=== PATIENT | female | born 1930 | race Caucasian/White ===

== ENCOUNTER 2016-12-14 03:22 | Inpatient (IN) ==
--- NOTE | 2016-12-14 04:25 | PROVIDER DOCUMENTATION ---
HPI-Cardiac General - General Chief Complaint: Shortness of Breath Stated Complaint: DYSPNEA, DNR, IRREGULAR BREATHING PATTERN Time Seen by Provider: 12/14/16 04:18 Source: family Allergies/Adverse Reactions: Patient Allergies Allergy/AdvReac Type Severity Reaction Status Date / Time No Known Allergies Allergy Verified 12/14/16 03:41 Home Medications: Home Medication List Medication Instructions Recorded Confirmed Last Taken Type Amlodipine [Norvasc] 5 mg PO DAILY 02/09/16 12/14/16 12/13/16 History Bisoprolol [Zebeta] 5 mg PO DAILY 02/09/16 12/14/16 12/13/16 History Digoxin 0.125 mg PO DAILY 02/09/16 12/14/16 12/13/16 History Diphenoxylate/Atropine [Lomotil] 2.5 mg PO DAILY 02/09/16 12/14/16 12/13/16 History Furosemide [Lasix] 40 mg PO DAILY 02/09/16 12/14/16 12/13/16 History Isosorbide Mononitrate E.r. [Imdur] 30 mg PO DAILY 02/09/16 12/14/16 12/13/16 History Quetiapine [Seroquel] 50 mg PO QHS 02/09/16 12/14/16 12/13/16 History Sertraline [Zoloft] 50 mg PO DAILY 02/09/16 12/14/16 12/13/16 History Aspirin [Aspirin EC] 81 mg PO DAILY #30 tablet. 02/12/16 12/14/16 12/13/16 Rx - History of Present Illness-Cardiac Nature of Presenting Problem: hx of chf afib with dementia having yari rudd breathing rapidly Quality of Pain: reports: none Severity in ED: moderate Onset/Duration: this evening Timing: still present Context/Activities at Onset: reports: none Modifying Factors: improves with: nothing, other medication Palpitation Quality: irregular History of arrythmia: reports: A-Fib Recent use of:: denies: no stimulants, caffeine, decongestant, cocaine, amphetamine Nitro Today/Relief: denies: no nitro taken today Aspirin Treatment Today: denies: no aspirin today Prior Chest Pain/Cardiac Workup: reports: no prior chest pain Associated Symptoms: reports: shortness of breath, weakness Similar Symptoms Previously?: Yes Recently Seen Here or By Another Healthcare Provider: Yes Review of Systems - Adult - REVIEW OF SYSTEMS - ADULT Constitutional: denies: chills, fever Eyes: reports: no symptoms reported Ears, Nose, Mouth & Throat: reports: no symptoms reported Cardiovascular: reports: irregular heart rate. denies: edema Respiratory: reports: dyspnea on exertion, shortness of breath Gastrointestinal: reports: no symptoms reported Genitourinary: reports: no symptoms reported Musculoskeletal: reports: no symptoms reported Integumentary: reports: no symptoms reported Neurological: reports: no symptoms reported Psychiatric: reports: no symptoms reported Endocrine: reports: no symptoms reported Hematologic/Lymphatic: reports: no symptoms reported Allergic/Immunologic: reports: no symptoms reported Past History - Adult - PAST MEDICAL HISTORY-ADULT Review of Records: reports: Nursing Assessment Review, Medications Reviewed, Social history reviewed & non-contributory. Major Childhood Illnesses: reports: denies history Cardiovascular: reports: CHF, HTN Respiratory: reports: asthma Gastrointestinal: reports: denies history Obstetrical/Gynecological: reports: denies history Genitourinary: reports: kidney disease Musculoskeletal: reports: denies history Neurological: reports: dementia Endocrine/Immune: reports: thyroid disorder Other Conditions: reports: denies history - PRIOR SURGERIES/PROCEDURES Surgical/Procedure History: reports: reviewed, not pertinent - PRIOR HOSPITALIZATIONS Prior Hospitalizations: reports: none - IMMUNIZATION STATUS Childhood Immunizations: See Nurse Assessment Flu Vaccine: See Nurse Assessment - FAMILY HISTORY Family History: reviewed, not pertinent Physical Exam-General - PHYSICAL EXAM-ADULT Initial Vital Signs Reviewed: Yes - CONSTITUTIONAL General Appearance: moderate distress - EYES Eyes: PERRL/EOMI, pink conjunctivae - HEAD, EARS, NOSE, MOUTH & THROAT HENMT: normocephalic/atraumatic - NECK Neck: supple - RESPIRATORY Respiratory: respiratory distress, rhonchi - CARDIOVASCULAR Cardiovascular: normal peripheral pulses, regular rate, rhythm - GASTROINTESTINAL (ABDOMEN) Abdominal Exam: soft - LYMPHATIC Lymphatic: no adenopathy - MUSCULOSKELETAL Back Exam: normal inspection Extremity: non-tender - SKIN Integumentary: normal color, warm/dry - NEUROLOGIC Neurologic: grossly normal Progress - PLAN OF CARE/RESULTS Progress/Plan/Lab Results: Vital Signs - 8 hr 12/14/16 03:34 12/14/16 03:48 Temperature 99.4 F Pulse Rate 158 H 145 H Respiratory Rate 38 H 46 H Blood Pressure 128/100 128/100 O2 Sat by Pulse Oximetry 95 98 Orders Category Date Time Status Admit - [facility] Routine AdmDCTranf 12/14/16 04:55 Ordered Activity - Strict Bedrest ORDERED Care 12/14/16 04:55 Active Vital Signs Order Q 8-HR .ASSESS Care 12/14/16 04:55 Active Z-Document. for Tele Applied ORDERED Care 12/14/16 04:57 Active Clear Liquid Diet Diet 12/14/16 04:57 Active CHEST-PORTABLE [RAD] Stat Exams 12/14/16 04:51 Ordered CBC WITH ELECTRONIC DIFF [HEME] Stat Lab 12/14/16 04:51 Ordered COMPREHENSIVE METABOLIC PANEL [CHEM] Stat Lab 12/14/16 04:51 Ordered 0.9% Sodium Chloride Inj [Ns] 1,000 ml Med 12/14/16 04:55 Active IV 50 mls/hr Metoprolol [Lopressor] Med 12/14/16 04:58 Discontinued 5 mg IV NOW ONE Oxygen Device Routine Oth 12/14/16 04:56 Active Telemetry [OM.EQ] Routine Oth 12/14/16 04:55 Active EKG [EKG] Routine Ther 12/14/16 04:51 Ordered Transfer/Admit Order [TRANSFER] Routine Transfer 12/14/16 04:55 Ordered - EKG 1 Time of EKG reading by physician:: 05:29 EKG Read and Signed by:: Tommie Flanagan EKG Interpretation (*Must complete 3 of following elements*): Abnormal Rate: 148 Rhythm: afib QRS: Q Waves present ST Wave: non-specific ST changes - XRAY 1 XRAY Study: Chest Impression: Abnormal (cardiomegaly) Departure - Departure Date of Disposition Decision: 12/14/16 Time of Disposition Decision: 05:31 DIAGNOSIS: Atrial fibrillation, rapid CHF (congestive heart failure), NYHA class IV Qualifiers: Congestive heart failure type: unspecified congestive heart failure type Qualified Code(s): I50.9 - Heart failure, unspecified Disposition: ADMITTED INPATIENT 09 Certified Medical Emergency: Emergent Condition: Serious Additional Freetext Instructions: ED Follow Up Instructions: You have been treated by a care provider in the Emergency Department. These instructions are being provided to you so you can have an understanding of how to care for yourself upon discharge. Upon discharge from the Emergency Department, you are responsible for making arrangements for follow-up care by a physician of your choice. Take all prescribed medications as directed. Return to the Emergency Department immediately for any new or worsening symptoms. You may call the Physician Referral phone number at [phone] to obtain a list of Physicians who are taking new patients. - Critical Care Note This patient required my direct & personal management of CC.: No
[2016-12-14] MEDS ORDERED: LOPRESSOR IV ONE (04:58)
[2016-12-14] MEDS ORDERED: CARDIZEM IV ONE (05:34)
[2016-12-14 05:58] LABS: MANUAL DIFF NEEDED? NO
[2016-12-14] MEDS: NS 1,000 ML IV ONE ×2 (05:59→15:48)
[2016-12-14 06:02] LABS: BASO% 0.1 % (0.0-0.8); HEMATOCRIT 42.7 % (37.0-47.0); HEMOGLOBIN 13.3 g/dL (12.0-16.0); IMM GRAN# 0.06 X1000 (0.0-0.04); IMM GRAN% 0.5 % (0.0-0.5); LYMPH# 1.33 X1000 (1.2-3.4); LYMPH% 11.1 % (20.5-51.1); MCHC 31.1 g/dL (33-37); MCV 93.2 FL (81-99); MONO# 1.11 X1000 (0.11-0.59); MONO% 9.3 % (1.7-9.3); MPV 12.4 FL (7.4-10.4); PLT 135 X1000 (130-400); RBC 4.58 XMIL (4.2-5.4)
[2016-12-14 06:23] LABS: ALBUMIN 4.2 g/dL (3.5-5.0); CALCIUM 9.4 mg/dL (8.8-10.2); TOTAL BILIRUBIN 1.9 mg/dL (0.20-1.00); TOTAL PROTEIN 8.4 g/dL (6.3-8.3)
--- NOTE | 2016-12-14 06:48 | Diag Imaging Result Doc PS360 ---
EXAM: CHEST-PORTABLE HISTORY: sob TECHNIQUE: Portable AP COMPARISON: 04/15/2016 FINDINGS: The heart remains enlarged. The lungs are well expanded. No infiltrates. No pleural effusions. The vessels are not distended. IMPRESSION: Stable cardiomegaly. Electronically signed by Ion Perez 12/14/2016 6:46 AM
--- NOTE | 2016-12-14 06:53 | EKG Report ---
Test Performed on : 12/14/2016 05:28:20 AM Test Reason : emboli Blood Pressure : / mmHG Vent. Rate : 148 BPM Atrial Rate : 141 BPM P-R Int : 000 ms QRS Dur : 092 ms QT Int : 322 ms P-R-T Axes : 000 005 -45 degrees QTc Int : 505 ms Atrial fibrillation. with rapid ventricular response. Incomplete right bundle branch block Voltage criteria for left ventricular hypertrophy Cannot rule out Septal infarct (cited on or before 16-APR-2016) Marked ST abnormality, possible lateral subendocardial injury Abnormal ECG When compared with ECG of 03-SEP-2016 12:11, Vent. rate has increased BY 85 BPM Unconfirmed Result
[2016-12-14] MEDS ORDERED: ZEBETA PO SCH (09:15)
[2016-12-14] MEDS ORDERED: NORVASC PO SCH (09:15)
[2016-12-14] MEDS ORDERED: IMDUR PO SCH (09:15)
[2016-12-14] MEDS ORDERED: ZOLOFT PO SCH (09:15)
[2016-12-14] MEDS ORDERED: LANOXIN PO SCH (09:15)
[2016-12-14] MEDS ORDERED: LOMOTIL PO SCH (09:15)
[2016-12-14] MEDS ORDERED: ASPIRIN EC PO SCH (09:15)
[2016-12-14] MEDS ORDERED: NS 1,000 ML IV ONE (09:33)
--- NOTE | 2016-12-14 11:43 | HISTORY AND PHYSICAL ---
CHIEF COMPLAINT: She was brought from home by her family due to having some shortness of breath and Yash-Dent respiration. HISTORY OF PRESENTING ILLNESS: This is an 86-year-old, cachectic, female who apparently was on hospice at home but began having some shortness of breath and Yash-Dent type respirations and so the family made the decision to bring her to the emergency room at [facility] ER. On arrival, she was noted to have a heart rate of 158 with respirations of 38, with an atrial fibrillation with RVR. Respirations got as high as 46 at one point while in the emergency room. She was given, in the emergency room, 5 mg of Lopressor IV x1 and 5 mg IV of Cardizem x1. Her heart rate improved. Around 7:45 this a.m., was at 82 but since that time, she has had periods of rapid ventricular rate. Remains in atrial fibrillation. Her blood pressure on the floor drop to 78/50. Called her daughter to discuss her plan of care at that time. They wanted everything done but to remain a DNR level 1 so we discussed moving her to the ICU for further evaluation and treatment. Family was in agreement. Once she got to the intensive care unit and got into the bed, her blood pressure came up to 191/80s. We stopped the order for the fluid bolus that we were going to give. She is admitted now for further evaluation and treatment. PAST MEDICAL HISTORY: CVA, CHF, COPD, hypertension, hypothyroidism, atrial fibrillation, and dementia. PAST SURGICAL HISTORY: None. FAMILY HISTORY: Noncontributory. SOCIAL HISTORY: She currently lives with family. Denies any tobacco, alcohol, or illicit drug use. ALLERGIES: She has no known drug allergies. HOME MEDICATIONS: Home medications will all be held at this time as she is lethargic and unable to swallow her medicines at this time. She was on Lasix 40 mg p.o. daily, Norvasc 5 mg p.o. daily, aspirin 81 mg p.o. daily, Zebeta 5 mg p.o. daily, digoxin 0.125 mg p.o. daily, Lomotil 2.5 mg p.o. daily, Imdur 30 mg p.o. daily, Seroquel 50 mg p.o. at bedtime, and Zoloft 50 mg daily. LABORATORY DATA: Showed a white blood cell count of 11.93, hemoglobin 13.3, hematocrit 42.7, platelets 135,000. Sodium of 149, potassium 5, chloride of 112, BUN of 34, creatinine 1.4, glucose 171. ProBNP was greater than 35,000. Digoxin level was 0.9. Chest x-ray showed stable cardiomegaly. EKG showed atrial fibrillation with RVR at 148. REVIEW OF SYSTEMS: Unable to obtain from patient. PHYSICAL EXAMINATION: VITAL SIGNS: On arrival, had a temperature of 99.4 degrees, pulse was 158, respirations 38, blood pressure 128/100, saturating 95% on room air. This a.m., when we went in to assess, she had a manual blood pressure of 78/50. Was noted to have respirations in the 40s with Yash-Dent appearance. The decision again, as previously stated in the HPI, was to move her up to ICU. HEENT: Normocephalic and atraumatic. Pupils appear equal, round, and reactive to light. The extraocular movements appear intact. Oropharynx and nares are clear. NECK: Supple. LUNGS: Noted to have rhonchi throughout. Yash-Dent respirations noted. Appears to be in some mild respiratory distress. HEART: Irregular rate and rhythm. No murmurs, rubs, or gallops. ABDOMEN: Soft, nontender, nondistended. Bowel sounds present x4 quadrants. EXTREMITIES: No clubbing, cyanosis, or edema. MUSCULOSKELETAL: Patient is a very thin, frail, cachectic, female. NEUROLOGICAL: Unable to assess at this time. ASSESSMENT: 1. Atrial fibrillation with rapid ventricular response. 2. Acute kidney injury. 3. Hypotension. 4. Dehydration. PLAN: She was initially admitted to the medical unit but has since been transferred to ICU. The patient is a DNR level 1 but family wants all treatments done up until the point she was to stop breathing or have a heartbeat. She is on telemetry. O2 per protocol. We are going to give her digoxin 125 mcg IV daily. She will continue normal saline at 50 mL an hour. Check a CBC and a BMP in the a.m., and an echocardiogram in the a.m. If her heart rate keeps staying elevated, right now it will go up momentarily but then come back down to normal, she may need a Cardizem drip and we will assess that at that time. All family needs have been discussed with the attending and he is aware of her current situation and will continue to follow. Dictated by DARLIN Wyatt for Merrill Cagle MD cc: DARLIN Wyatt MD
--- NOTE | 2016-12-14 12:13 | PROGRESS NOTE ---
DATE: 12/14/2016 SUBJECTIVE: Today Ms. Dao continued to be extremely sick, is completely nonverbal and will move her extremities to extreme painful stimulation. OBJECTIVE: General: Ms. Dao is an 86-year-old female. She is in bed, seems to be in remarkable distress. She does have an episode where she does very rapid breathe and then slows down and has a pulse which looks like it is consistent with Yash-Dent type of breathing. Chest air entry is bilaterally reduced. Cardiovascular: Irregularly irregular. No murmurs. Abdomen: Soft. Extremities: No pedal edema. VETERINARY PARASITOLOGIST: Patient is nonverbal, has her eyes closed. Will only open to very painful stimulation. LABORATORY DATA: WBC is 11.93, hemoglobin is 13.3, platelet count is 135,000. Chemistries reviewed. Sodium is 149, potassium is 5.0, chloride is 112, bicarb is 18, BUN is 34, creatinine is 1.4. Patient's ProBNP is more than 3500. We do not have any other labs on her. A chest x-ray done today shows stable cardiomegaly, but there are not any effusions and no consolidations. ASSESSMENT: 1. Altered mental status. The etiology is apparently not clear. I have not seen any neuro imaging done. I think patient probably has a toxic metabolic encephalopathy. I understand she is DNR/DNI, so neurologic imaging has been withheld. 2. Dehydration. We are going to continue with some baseline gentle IV hydration. 3. Atrial fibrillation with rapid ventricular rate. The patient is currently rate controlled. Was given a dose of digoxin. 4. Diastolic heart failure. 5. Chronic obstructive pulmonary disease changes and chest x-ray. 6. Cardiomegaly. 7. Acute kidney injury. Hopefully this gets better with adequate response to hydration. In general, I think Ms. Dao is extremely sick, which I have explained to the family members, the 2 sisters and a brother. She was on hospice at home but over here she is not. She is, however, DNR/DNI. We are going to give her some gentle hydration to fill the intravascular space since I think she is more in a diastolic heart failure than systolic. Would also continue to control her heart rate with digoxin and diltiazem. We have withheld all her blood pressure medications because of low blood pressure. cc: Merrill Cagle MD MTDD
[2016-12-14] MEDS ORDERED: NS 1,000 ML ONE (15:43)
[2016-12-14] MEDS: LANOXIN IV SCH (15:48)
[2016-12-14 19:40] LABS: BILIRUBIN URINE 1+ (NEGATIVE); BLOOD URINE 1+ (NEGATIVE); CLARITY VERY CLOUDY (CLEAR); COLOR AMBER; GLUCOSE URINE NEGATIVE (NEGATIVE); LEUKOCYTES URINE 1+ (NEGATIVE); NITRITE URINE NEGATIVE (NEGATIVE); UROBILINOGEN URINE 1+(1 mg/dL)
[2016-12-14 19:46] LABS: URINE CULTURE PL NEEDED? YES; URINE EPITHELIAL CELLS >10 /HPF (<10)
[2016-12-14 19:47] LABS: URINE CAST NONE SEEN /LPF; URINE CRYSTAL NONE SEEN /HPF; URINE SOURCE CATH
[2016-12-14] MEDS ORDERED: SEROQUEL PO SCH (21:00)
[2016-12-15 06:25] LABS: BE -14.5 mmoll (-3.0-3.0); BLOOD TYPE ARTERIAL; DRAW SITE R RADIAL; METHB 1.1 % (0.0-1.5); PO2(98.6) 145 mmHg (60-100); SAMPLE BLOOD; SAO2 99.8 % (95.0-100.0); pH(98.6) 7.34 (7.35-7.45)
[2016-12-15 06:27] LABS: ALLEN TEST YES; MODALITY CANNULA; PCO2(98.6) 16 mmHg (35-45)
[2016-12-15 06:36] LABS: BASO% 0.1 % (0.0-0.8); HEMATOCRIT 45.4 % (37.0-47.0); HEMOGLOBIN 13.6 g/dL (12.0-16.0); IMM GRAN# 0.06 X1000 (0.0-0.04); IMM GRAN% 0.3 % (0.0-0.5); LYMPH# 1.42 X1000 (1.2-3.4); LYMPH% 7.6 % (20.5-51.1); MANUAL DIFF NEEDED? YES; MCH 28.5 PG (27-31); MONO# 1.53 X1000 (0.11-0.59); MONO% 8.1 % (1.7-9.3); MPV 13.4 FL (7.4-10.4); NEUT% 83.9 % (42.2-75.2); PLT 104 X1000 (130-400); RBC 4.78 XMIL (4.2-5.4)
[2016-12-15 06:49] LABS: CALCIUM 8.5 mg/dL (8.8-10.2); POTASSIUM 5.9 mmol/L (3.5-5.1)
[2016-12-15 07:52] LABS: LYMPHS 7 % (21-51); MONO 6 % (1-9)
[2016-12-15] MEDS: LANOXIN IV SCH (09:20)
[2016-12-15] MEDS ORDERED: SODIUM BICARBONATE 8.4% IV ONE (09:21)
[2016-12-15] MEDS ORDERED: SODIUM BICARBONATE 8.4% 100 MEQ in D5W 1,000 ML IV SCH ×2 (09:21→09:36)
[2016-12-15] MEDS ORDERED: VANCOMYCIN IV PER PHARMACY MISC SCH (09:30)
[2016-12-15] MEDS: ZOSYN 2.25 GM/NS 2.25 GM/50 ML IVPB IV SCH ×2 (09:30→16:52)
--- NOTE | 2016-12-15 10:17 | PROGRESS NOTE ---
DATE: 12/15/2016 SUBJECTIVE: Today, Ms. Dao continues to show significant deterioration. She is less responsive than yesterday. OBJECTIVE: Vital Signs: Her blood pressure is 144/79, pulse is 91, respirations 25, temperature 99.3 degrees. General: On exam, Ms. Dao is an 86-year-old, female. She is in bed, currently under the BiPAP, breathing about almost 35/37 per minute. HEENT : Mucosa is pink, dry, anicteric and acyanotic. Neck is supple. Chest: Air entry is bilaterally reduced. I did not appreciate any crackles. Cardiovascular regular rate and rhythm. Abdomen is soft. Extremities: No pedal edema. There is some distal discoloration of all the digits on both hands and toes and the lower extremities are significantly cold to touch. COLLISION ESTIMATOR: Patient is unresponsive to name, to verbal stimulation, even to painful stimulation. She will only grimace her face. Pupils are sluggishly reactive. LABORATORY DATA: WBC is 18.8. Hemoglobin is 13.6, platelet count is 104,000. Segment is 87%. Chemistry: Sodium is 154, potassium went up to 5.9, chloride is 114, bicarb is 11. Anion gap is 29. BUN is 59, creatinine is 5.2. No x-ray for today. ASSESSMENT: 1. Altered mental status likely due to underlying toxic metabolic encephalopathy. 2. Atrial fibrillation with rapid ventricular response, currently rate controlled. 3. Diastolic heart failure. 4. Overwhelming sepsis; unsure of the source. Patient has significant leukocytosis, highly elevated lactate level. Kidneys are shutting down. We are going to do her blood cultures. We are going to put her on some antibiotics. We will give her a dose of BICAP and change her normal saline fluid to BICAP drip at 100 mL/h. 5. Severe lactic acidosis. We think this is due to hypoperfusion from sepsis and from diastolic heart failure. We are going to try improve the intravascular space with hydration and correct the metabolic acidosis with BIBAP. 6. Cardiomegaly. 7. Acute kidney injury. Patient has very minimal urine output. We will increase her fluids to see if that will help. In general, I think Ms. Dao has a very poor prognosis. However, at this point, she is not comfort care and the family wants the minimum to be done after the time I spoke to them yesterday. I am still waiting to see the daughters and the son to know what is going to be their position going forward. Patient is not is currently DNR, DNI, but as I said after yesterday, they still wanted fluids ,antibiotics and medications to be given. I spoke extensively with the family about patient poor prognosis. They are currently leaning towards [employer] [employer]. at about 4: 10 pm, the nurse caleed me and said the POA wants hospice evaluation . they plan to make her [employer] [employer] with hospice in hospital or at home. Will consult rn social services for hospice. critical time spent was 1 hour cc: Merrill Cagle MD MTDD
[2016-12-15] MEDS ORDERED: VANCOMYCIN 1 GM/NS 1 GM/250 ML IVPB IV ONE (11:00)
[2016-12-15 16:55] VITALS: BP 50/32
--- NOTE | 2016-12-15 17:37 | ECHO REPORT ---
ORDER DATE: 12/15/2016 MEASUREMENTS: Left ventricular end-diastolic diameter 3.6, end-systolic diameter 3.2, posterior wall thickness 1.4, septal thickness 1.4, left atrium 1.9, aortic root 3.2, ascending aorta 4.5. SUMMARY: 1. Technically difficult study taken with patient in supine position. 2. Trileaflet aortic valve demonstrates mild sclerosis, but opens adequately on 2-D images. There is [id number] aortic regurgitation. The aortic root at the level of sinus of Valsalva is normal in size. Above the sinotubular junction, the aorta progressively enlarges like a funnel. The proximal ascending aorta measures 4.5 cm. Linear echodensity is noted in the posterior aorta just above the sinotubular junction, but is not well-defined. Cannot exclude dissection. There is mild thickening of mitral valve leaflets with adequate mitral valve opening. There is mild mitral regurgitation. The tricuspid and pulmonic valves are without structural abnormality with moderate tricuspid regurgitation and mild pulmonic regurgitation. The estimated systolic PA pressure by Doppler is 45-50 mmHg suggesting moderate pulmonary hypertension. 3. Normal left ventricular chamber size with moderate concentric left ventricular hypertrophy demonstrated. Estimated left ventricular ejection fraction is approximately 25% in the setting of global hypokinesis. Left atrial dimensions are small due to extrinsic compression from posterior to the aorta. This appears to be probably the descending thoracic aorta which is very tortuous. Right atrium and right ventricle are grossly normal in size. 4. No pericardial effusion. 5. Appearance of inferior vena cava suggests elevated central venous pressure with inferior vena cava distended and demonstrating poor inspiratory collapse. 6. Prominent atherosclerotic plaquing and descending thoracic aorta evident. Descending thoracic aorta appears mildly enlarged. cc: MD Miriam Coronel CRNP
[2016-12-15] MEDS ORDERED: ATIVAN IV PRN (19:48)
--- NOTE | 2016-12-16 16:46 | DISCHARGE SUMMARY ---
ADMISSION DATE: 12/14/2016 DISCHARGE DATE: 12/15/2016 DATE OF : 12/15/2016 at 2145. DIAGNOSIS AT THE TIME OF : 1. Altered mental status likely due to underlying toxic metabolic encephalopathy from sepsis. 2. Atrial fibrillation with rapid ventricular response. 3. Diastolic heart failure. 4. Overwhelming sepsis (septic shock). 5. Severe lactic acidosis. 6. Cardiomegaly. 7. Acute kidney injury. 8. Multi-organ failure. 9. Gram-positive cocci bacteremia. PRESENTING COMPLAINT: Shortness of breath and CheyneStokes breathing. HISTORY OF PRESENTING COMPLAINT: Ms. Dao is an 86-year-old, -[place] female, who was previously on hospice at home, but family members brought her because she was having difficulty breathing. Upon presentation, the patient was found to be in atrial fibrillation RVR and having some Yash-Dent breathing. This was interpreted to be congestive heart failure due to atrial fibrillation RVR. Cardizem was given. Blood pressure dropped, but the rate improved a little bit. Because the family still wanted everything to be done except for no intubation and no chest compression, patient was transferred to the ICU for more medical care. The patient did not really respond favorably to the therapy. Conversations were held on daily basis with the family members. Eventually, they decided to do hospice, so antibiotics and everything else were discontinued and patient was kept comfortable. My understanding is that at about 2145, the time of , flat line was obtained on the promotion specialist and Ms. Dao was completely unresponsive, not showing any sign of vitality. Two nurses pronounced her and the family members were notified. cc: Merrill Cagle MD
[2016-12-20] MEDS ORDERED: VANCOMYCIN 700 MG in NS 250 ML IV SCH (11:00)
== END 2016-12-15 20:08 | disposition hospice, inpatient (51) ==
LOC: P.MEDSURG 03:22 → P.ED 03:22 → SUATTDRO 05:28
PROVIDERS: ATTEND Internal Medicine

== ENCOUNTER 2016-12-15 20:11 | Inpatient (IN) ==
[2016-12-15] MEDS ORDERED: ROXANOL CONC. LIQUID PO PRN (20:25)
[2016-12-15] MEDS ORDERED: ATROPINE 1% OPHTH SOLN SL PRN (20:27)
[2016-12-15] MEDS ORDERED: LORAZEPAM ORAL CONCENTRATE PO PRN (20:29)
[2016-12-15] MEDS ORDERED: TYLENOL PR PRN (20:31)
[2016-12-15] MEDS ORDERED: ATIVAN IV PRN (20:33)
== END 2016-12-15 21:45 | disposition expired ==
LOC: P.ICU 20:11
PROVIDERS: ADMIT Internal Medicine; ATTEND Internal Medicine